=== PATIENT | female | born 1985 | race African-American/Black ===

== ENCOUNTER 2017-04-29 18:40 | Emergency (ER) | payer OTHER ==
[2017-04-29 18:54] VITALS: BP 110/65; PULSE 83; TEMP 98.5; BMI 18.8
[2017-04-29 20:24] LABS: URINE APPEARANCE SLCLOUDY; URINE BILIRUBIN NEGATIVE (NEGATIVE); URINE BLOOD NEGATIVE (NEGATIVE); URINE COLOR YELLOW; URINE GLUCOSE (UA) NEGATIVE (NEGATIVE); URINE KETONE TRACE (NEGATIVE); URINE NITRITE NEGATIVE (NEGATIVE); URINE PROTEIN NEGATIVE (NEGATIVE); URINE UROBILINOGEN NEGATIVE mg/dL (0.2-1.0)
[2017-04-29] MEDS ORDERED: KETOROLAC TROMETHAMINE 30 MG/1 ML VIAL IM ONE (20:35)
[2017-04-29 20:36] LABS: URINE LEUK ESTERASE 1+ (NEGATIVE)
[2017-04-29 20:37] LABS: URINE BACTERIA RARE /hpf (NONE SEEN); URINE MUCUS FEW; URINE RBC 3 /hpf (0-3); URINE WBC 7 /hpf (3-5)
[2017-04-29] MEDS ORDERED: KETOROLAC TROMETHAMINE 30 MG/1 ML VIAL ONE (20:47)
--- NOTE | 2017-04-29 21:38 | PDOC ---
History of Present Illness - General Chief Complaint: Back Pain Stated Complaint: PAIN, ACUTE Time Seen by Provider: 04/29/17 20:22 History Source: Patient Exam Limitations: No Limitations - History of Present Illness Initial Comments: 04/29/17 21:34 CC left upper back pain intermit. c 3 weeks; no cough Occurred: reports: last week Severity: reports: mild Pain Location: reports: back, chest Method of Injury: Yes: other (no trauma) Past History - Past Medical History Allergies/Adverse Reactions: Allergies Allergy/AdvReac Type Severity Reaction Status Date / Time Shellfish Allergy Severe Swelling Verified 04/29/17 18:54 shellfish derived Allergy Severe Swelling Verified 04/29/17 18:54 Home Medications: Ambulatory Orders Ergocalciferol [Vitamin D2] 50,000 unit PO Q7D@1000 04/29/17 Asthma: Yes Cancer: No Cardiac Disorders: No Diabetes: No HTN: No Psychiatric Problems: Yes (DEPRESSION.) Suicide Attempt (Hx): No Seizures: No Thyroid Disease: No - Reproductive History (#): 4 Para: 2 Cervical CA: No Dysfunctional Uterine Bleeding: No Ectopic : No Endometrial CA: No Polycystic Ovaries: No Therapeutic (s) & number: No Tubal Ligation: No Spontaneous : 1 - Immunization History Immunization Up to Date: Yes - Psycho/Social/Smoking Cessation Hx Anxiety: No Suicidal Ideation: No Smoking Status: Yes Smoking History: Current every day smoker Have you smoked in the past 12 months: Yes Number of Cigarettes Smoked Daily: 6 Information on smoking cessation initiated: Yes 'Breaking Loose' booklet given: 04/29/17 Hx Alcohol Use: No Drug/Substance Use Hx: No Substance Use Type: None Hx Substance Use Treatment: No Review of Systems - Review of Systems Constitutional: No: Symptoms Reported HEENTM: No: Symptoms Reported Respiratory: No: Symptoms reported Cardiac (ROS): Yes: Chest Pain (left posterior chest). No: Symptoms Reported ABD/GI: No: Symptoms Reported, Vomiting, Abdominal cramping *Physical Exam - Vital Signs Last Vital Signs Temp Pulse Resp BP Pulse Ox 98.5 F 83 20 110/65 100 04/29/17 18:51 04/29/17 18:51 04/29/17 18:51 04/29/17 18:51 04/29/17 18:51 - Physical Exam General Appearance: Yes: Appropriately Dressed. No: Apparent Distress HEENT: negative: Tonsillar Exudate, Nasal Congestion, Rhinorrhea Neck: positive: Supple. negative: Tender, Rigid, Lymphadenopathy (R), Lymphadenopathy (L) Respiratory/Chest: positive: Lungs Clear, Other (tender left posterior lower chest; no CVA tenderness) ED Treatment Course - ADDITIONAL ORDERS Additional order review: Laboratory Results 04/29/17 20:10 Urine Color Yellow Urine Appearance Slcloudy Urine pH 5.0 Urine Protein Negative Urine Glucose (UA) Negative Urine Ketones Trace H Urine Blood Negative Urine Nitrite Negative Urine Bilirubin Negative Urine Urobilinogen Negative Urine RBC 3 Urine WBC 7 Ur Epithelial Cells Moderate Urine Bacteria Rare Urine Mucus Few Urine HCG, Qual Negative - RADIOLOGY Radiology Studies Ordered: Category Date Time Status CHEST PA & LAT [RAD] Stat Radiology 04/29/17 20:35 Taken - Medications Given in the ED: ED Medications Discontinued Medications Generic Name Dose Route Start Last Admin Trade Name Freq PRN Reason Stop Dose Admin Ketorolac Tromethamine 30 mg 04/29/17 20:35 04/29/17 20:52 Toradol Injection - IM 04/29/17 20:36 30 mg ONCE ONE Administration Medical Decision Making - Medical Decision Making 04/29/17 21:36 will suggest follow up local MD this week for lost apetite *DC/Admit/Observation/Transfer Diagnosis at time of Disposition: Chest wall pain - Discharge Dispostion Disposition: HOME Condition at time of disposition: Stable Admit: No - Referrals Referrals: Michelle Mackenzie MD [Primary Care Provider] - - Patient Instructions Additional Instructions: please follow up local MD this week for further work up for back pain and loss of apetiet - Post Discharge Activity
== END 2017-04-29 21:39 | disposition home or self-care (01) ==
LOC: JERFT 18:40
PROC: 3E0233Z Introduction of Anti-inflammatory into Muscle, Percutaneous Approach (ICD-10-PCS; principal; 2017-04-29)
DX: R07.89 Other chest pain (principal)
CPT/HCPCS: 71020-TC; 81003; 81015; 84703; 87086; 99281-25

== ENCOUNTER 2017-11-03 18:09 | Emergency (ER) | payer OTHER ==
[2017-11-03 18:16] VITALS: BP 110/80; PULSE 76; TEMP 98.7; BMI 17.7
[2017-11-03] MEDS ORDERED: ALBUTEROL SO4 2.5/IPRATROPIUM 0.5 INH SOL 3 ML VIAL.NEB. NEB ONE (18:16)
--- NOTE | 2017-11-03 18:16 | PDOC ---
Rapid Medical Evaluation Chief Complaint: Cold Symptoms Time Seen by Provider: 11/03/17 18:12 Medical Evaluation: Allergies Allergy/AdvReac Type Severity Reaction Status Date / Time Shellfish Allergy Severe Swelling Verified 04/29/17 18:54 shellfish derived Allergy Severe Swelling Verified 04/29/17 18:54 11/03/17 18:13 The patient presents with a chief complaint of: Productive cough for one month. Pt. has hx of asthma, using nebulizer at night to breath. Pt. approximately 8 weeks , No vaginal bleeding/abdominal pain today. Smokes half a pack a day. I have performed a brief in-person evaluation of this patient; Pertinent physical exam findings: ambulatory, in no respiratory distress. Wheezing through out all lung brambila I have ordered the following: Duoneb The patient will proceed to the ED for further evaluation.
--- NOTE | 2017-11-03 19:19 | PDOC ---
History of Present Illness - General Chief Complaint: Cold Symptoms Stated Complaint: COUGHING/SPOTTING () Time Seen by Provider: 11/03/17 18:12 History Source: Patient Exam Limitations: No Limitations - History of Present Illness Initial Comments: 11/03/17 19:23 Patient is a 32-year-old female, denies any medical history, presents emergency Department with cough for several months, denies any fever, no chest pain. She admits to smoking 10 cigarettes and occasional marijuana. Also asking for testing, patient home test at home she reports spotting for several days and with right lower quadrant pain. Denies any fever. Past Medical History: [Denies]. Allergies: Shellfish Medications: [Albuterol PRN] Family History: Non-contributory Social History: Denies smoking, alcohol use, or IVDU Review of Systems GENERAL/CONSTITUTIONAL: [No fever or chills. No weakness. No weight change.] HEAD, EYES, EARS, NOSE AND THROAT: [No change in vision. No ear pain or discharge. No sore throat. ] CARDIOVASCULAR: [No chest pain or shortness of breath.] RESPIRATORY: [Moist productive cough, no wheezing, or hemoptysis.] GASTROINTESTINAL: [No nausea, vomiting, diarrhea or constipation. No rectal bleeding.] GENITOURINARY: [No dysuria, frequency, or change in urination. Vaginal spotting last 2 days ago, right lower quadrant cramping] MUSCULOSKELETAL: [No joint or muscle swelling or pain. No neck or back pain.] SKIN: [No rash or easy bruising.] NEUROLOGIC: [No headache, vertigo, loss of consciousness, or loss of sensation.] Physical Exam: GENERAL: [The patient is awake, alert, and fully oriented, in no acute distress. ] HEAD: [Normal with no signs of trauma.] EYES: [Pupils equal, round and reactive to light, extraocular movements intact, sclera anicteric, conjunctiva clear.] ENT: [Ears normal, nares patent, oropharynx clear without exudates. Moist mucous membranes. No uvula deviation] NECK: [Normal range of motion, supple without lymphadenopathy, JVD, or masses.] LUNGS: [Breath sounds equal, clear to auscultation bilaterally. No wheezes, and no crackles.] HEART: [Regular rate and rhythm, normal S1 and S2 without murmur, rub or gallop. ] ABDOMEN: [Soft, nontender, normoactive bowel sounds. No guarding, no rebound. No masses. No bruising or abrasions] MUSCULOSKELETAL: [Normal range of motion, no edema. No clubbing or cyanosis. No cords, erythema, or tenderness. No CVA Tenderness with fist palpation.] NEUROLOGICAL: [Cranial nerves II through XII grossly intact. Normal speech, normal gait.] SKIN: [Warm, Dry, normal turgor, no rashes or lesions noted.] 11/03/17 19:47 Past History - Past Medical History Allergies/Adverse Reactions: Allergies Allergy/AdvReac Type Severity Reaction Status Date / Time Shellfish Allergy Severe Swelling Verified 11/03/17 18:16 shellfish derived Allergy Severe Swelling Verified 11/03/17 18:16 Home Medications: Ambulatory Orders Albuterol Sulfate Inhaler - [Ventolin HFA Inhaler -] 1 - 2 inh PO Q4H #1 inhaler 11/03/17 Azithromycin [Zithromax 250mg Tablets -] 250 mg PO UTDICT #6 tab 11/03/17 Asthma: Yes Cancer: No Cardiac Disorders: No COPD: No Diabetes: No HTN: No Psychiatric Problems: Yes (DEPRESSION.) Seizures: No Thyroid Disease: No - Reproductive History (#): 4 Para: 2 Cervical CA: No Dysfunctional Uterine Bleeding: No Ectopic : No Endometrial CA: No Polycystic Ovaries: No Therapeutic (s) & number: No Tubal Ligation: No Spontaneous : 1 - Immunization History Immunization Up to Date: Yes - Suicide/Smoking/Psychosocial Hx Smoking Status: Yes Smoking History: Current every day smoker Have you smoked in the past 12 months: Yes Number of Cigarettes Smoked Daily: 10 Information on smoking cessation initiated: Yes 'Breaking Loose' booklet given: 11/03/17 Hx Alcohol Use: No Drug/Substance Use Hx: No Substance Use Type: None Hx Substance Use Treatment: No *Physical Exam - Vital Signs Last Vital Signs Temp Pulse Resp BP Pulse Ox 98.7 F 76 18 110/80 100 11/03/17 18:13 11/03/17 18:13 11/03/17 18:13 11/03/17 18:13 11/03/17 18:13 ED Treatment Course - LABORATORY CBC & Chemistry Diagram: 11/03/17 19:27 - Medications Given in the ED: ED Medications Discontinued Medications Generic Name Dose Route Start Last Admin Trade Name Lara PRN Reason Stop Dose Admin Albuterol/Ipratropium 1 amp 11/03/17 18:16 11/03/17 18:25 Duoneb - NEB 11/03/17 18:17 1 amp ONCE ONE Administration Medical Decision Making - Medical Decision Making 11/03/17 19:28 A/P: Patient with moist cough for several months and vaginal spotting last 2 days ago. Took a home test that was positive is having right lower quadrant cramping. Last menstrual period Was September 07. Rule out ectopic. Will send beta hCG, CBC, type and screen and transvaginal ultrasound. Combivent treatment given in triage, lungs are clear, moist cough is noted but no rhonchi no evidence of pneumonia. Patient is a daily smoker. I am signing this patient out to my colleague: SYLVAIN Blake In brief, this patient is being seen in the ED for a chief complaint of: [ Cough for several months, patient is a smoker lungs are clear after treatment. Has a history of asthma. Also vaginal bleeding, missed, last September 07, Home test positive right lower quadrant cramping rule out ectopic I have completed the initial assessment interview note and have ordered: CBC, type and screen, beta hCG and transvaginal ultrasound I have reviewed the following results: All pending Pending results are: CBC, type and screen, beta hCG and transvaginal ultrasound Plan for disposition is as follows: [Pending] *DC/Admit/Observation/Transfer Diagnosis at time of Disposition: Bronchitis, First trimester Ovarian cyst Qualifiers: Laterality: left Qualified Code(s): N83.202 - Unspecified ovarian cyst, left side - Discharge Dispostion Disposition: HOME Condition at time of disposition: Stable - Prescriptions Prescriptions: Albuterol Sulfate Inhaler - [Ventolin HFA Inhaler -] 1 - 2 inh PO Q4H #1 inhaler Azithromycin [Zithromax 250mg Tablets -] 250 mg PO UTDICT #6 tab - Referrals - Patient Instructions Additional Instructions: Stop smoking. Start taking vitamins. Eat plenty of leafy green vegetables to help that developing brain. Follow-up with your candy attendant in 2 days for repeat blood testing. Return to emergency department for vaginal bleeding, vaginal discharge, severe abdominal pain, or any other concerns. - Post Discharge Activity
[2017-11-03 19:54] LABS: BASO % 0.2 % (0-2.0); HEMATOCRIT 33.6 % (32.4-45.2); HEMOGLOBIN 11.2 GM/dL (10.7-15.3); LYMPH % 26.5 % (8-40); MCH 27.9 pg (25.7-33.7); MCHC 33.4 g/dl (32.0-36.0); MEAN CELL VOLUME 83.4 fl (80-96); MEAN PLT VOLUME 9.5 fl (7.5-11.1); NEUT % 67.3 % (42.8-82.8); PLATELET COUNT 188 K/MM3 (134-434); RBC 4.03 M/mm3 (3.60-5.2); RDW 15.5 % (11.6-15.6); WHITE BLOOD COUNT 7.9 K/mm3 (4.0-10.0)
--- NOTE | 2017-11-03 21:25 | PDOC ---
*Physical Exam - Vital Signs Last Vital Signs Temp Pulse Resp BP Pulse Ox 98.7 F 76 18 110/80 100 11/03/17 18:13 11/03/17 18:13 11/03/17 18:13 11/03/17 18:13 11/03/17 18:13 ED Treatment Course - LABORATORY CBC & Chemistry Diagram: 11/03/17 19:27 - ADDITIONAL ORDERS Additional order review: Laboratory Results 11/03/17 19:27 Beta HCG, Quant 28.4 11/03/17 19:27 RBC 4.03 MCV 83.4 MCHC 33.4 RDW 15.5 MPV 9.5 Neutrophils % 67.3 D Lymphocytes % 26.5 D Monocytes % 5.0 Eosinophils % 1.0 Basophils % 0.2 - Medications Given in the ED: ED Medications Discontinued Medications Generic Name Dose Route Start Last Admin Trade Name Freq PRN Reason Stop Dose Admin Albuterol/Ipratropium 1 amp 11/03/17 18:16 11/03/17 18:25 Duoneb - NEB 11/03/17 18:17 1 amp ONCE ONE Administration Medical Decision Making - Medical Decision Making 11/03/17 21:26 Received signout from BATTERY ASSEMBLER DRY CELL Andolino Patient was home test coming in with upper respiratory type symptoms and moist cough. Patient is a chronic smoker. Beta-hCG levels 25.7. Transvaginal ultrasound as read by Dr. Dudley: left ovarian cyst with no sonographic evidence of viable uterine gestation. There is no evidence of adnexal masses or free pelvic fluid collections. No evidence of pelvic torsion. I'll discharge the patient home with follow-up to her HEPATOLOGY PHYSICIAN in 2 days for repeat beta testing and ultrasound. Billyast discussed with patient who verbalizes understanding and agreement of discharge plan. *DC/Admit/Observation/Transfer Diagnosis at time of Disposition: Bronchitis, First trimester Ovarian cyst Qualifiers: Laterality: left Qualified Code(s): N83.202 - Unspecified ovarian cyst, left side - Discharge Dispostion Disposition: HOME Condition at time of disposition: Stable Admit: No - Prescriptions Prescriptions: Albuterol Sulfate Inhaler - [Ventolin HFA Inhaler -] 1 - 2 inh PO Q4H #1 inhaler Azithromycin [Zithromax 250mg Tablets -] 250 mg PO UTDICT #6 tab - Referrals - Patient Instructions Additional Instructions: Stop smoking. Start taking vitamins. Eat plenty of leafy green vegetables to help that developing brain. Follow-up with your renewable energy project manager in 2 days for repeat blood testing. Return to emergency department for vaginal bleeding, vaginal discharge, severe abdominal pain, or any other concerns. - Post Discharge Activity
== END 2017-11-03 21:38 | disposition home or self-care (01) ==
LOC: JERFT 18:09
PROC: 3E0F7GC Introduction of Other Therapeutic Substance into Respiratory Tract, Via Natural or Artificial Opening (ICD-10-PCS; principal; 2017-11-03)
DX: O26.891 Other specified pregnancy related conditions, first trimester (principal); O99.511 Diseases of the respiratory system complicating pregnancy, first trimester; J40 Bronchitis, not specified as acute or chronic; N83.202 Unspecified ovarian cyst, left side; Z3A.01 Less than 8 weeks gestation of pregnancy
CPT/HCPCS: 36415; 76817-TC; 84702; 85025; 86850; 86900; 86901; 99282-25